=== PATIENT | female | born 1965 | race Caucasian/White ===

== ENCOUNTER 2017-11-08 08:57 | Day surgery (SDC) | payer OTHER ==
[2017-11-08] MEDS ORDERED: LIDOCAINE 4% SOLUTION 50 ML BTL (09:27)
[2017-11-08] MEDS ORDERED: FENTAnyl 50 MCG/ML VIAL (10:06)
[2017-11-08] MEDS ORDERED: MIDAZOLAM 1 MG/ML 2 ML INJ ×2 (10:07)
== END 2017-11-08 14:41 | disposition home or self-care (01) ==
LOC: GIL 08:57
DX: Z12.11 Encounter for screening for malignant neoplasm of colon (principal); K29.50 Unspecified chronic gastritis without bleeding; K64.4 Residual hemorrhoidal skin tags; K64.8 Other hemorrhoids
CPT/HCPCS: 43239; 88305; 88312